=== PATIENT | male | born 1945 | race Caucasian/White ===

== ENCOUNTER 2021-03-17 14:39 | Emergency (ER) | payer OTHER, MEDICARE ==
[2021-03-17] MEDS ORDERED: Amoxicillin/Clavulanate K 875-125 MG Tab PO ONE (15:44)
--- NOTE | 2021-03-17 16:13 | EDM.PDOC ---
ED HPI GENERAL MEDICAL PROBLEM - General Chief Complaint: Lower Extremity Injury/Pain Stated Complaint: R LEG SWOLLEN Time Seen by Provider: 03/17/21 15:10 Source of Information: Reports: Patient, Family History Limitations: Reports: No Limitations - History of Present Illness INITIAL COMMENTS - FREE TEXT/NARRATIVE: 75-year-old male that underwent left leg surgery 3 days ago, Dr. Dominguez performed a hematoma evacuation on the posterior aspect of the lower leg. He has significant bruising from the inguinal canal all the way to the toes but this was present prior to surgery because his injury had occurred 2 weeks ago. For the last 2 days he was bearing some weight and seem to be doing okay but has had a significant setback today, increased pain, unable to bear any weight or even touch his toes on the floor. No fevers or chills. There is also some redness that is developed on the anterior aspect of the acosta. Onset: Gradual Duration: Hour(s): (Symptoms worsened over the past 24 hours) Location: Reports: Lower Extremity, Left Associated Symptoms: Reports: Malaise, Weakness. Denies: Confusion, Chest Pain, Loss of Appetite, Nausea/Vomiting, Shortness of Breath Right Leg Pain Score (Numeric/FACES): 1 - Related Data Allergies Allergy/AdvReac Type Severity Reaction Status Date / Time copper Allergy Rash Verified 03/17/21 15:03 [id number] Reductase Allergy Muscle Verified 03/17/21 15:03 Inhibitor Weakness Sulfa (Sulfonamide Allergy Hives Verified 03/17/21 15:03 Antibiotics) Home Meds: Home Meds Acetic Acid [Glacial Acetic Acid] 2 drop EARBOTH ASDIRECTED PRN 03/17/21 [History] Amoxicillin/Clavulanate K [Augmentin 875-125 MG] 1 tab PO BIDMEALS #20 tablet 03/17/21 [Rx] Aspirin 325 mg PO BEDTIME 03/17/21 [History] Cetirizine HCl [Zyrtec] 10 mg PO DAILY 03/17/21 [History] Econazole/Triamcinolone [Triamazole 1%-0.1% Combo Pack] 1 dose TOP ASDIRECTED PRN 03/17/21 [History] Hypromellose [Natural Balance Tears] 1 drop EYEBOTH DAILY 03/17/21 [History] Labetalol [Normodyne] 200 mg PO BID 03/17/21 [History] Omeprazole 20 mg PO DAILY 03/17/21 [History] Spironolactone [Aldactone] 25 mg PO DAILY 03/17/21 [History] amLODIPine [Norvasc] 5 mg PO DAILY 03/17/21 [History] lisinopriL [Lisinopril] 40 mg PO DAILY 03/17/21 [History] Past Medical History HEENT History: Reports: Allergic Rhinitis, Cataract, Hard of Hearing, Impaired Vision Cardiovascular History: Reports: High Cholesterol, Hypertension Gastrointestinal History: Reports: GERD Oncologic (Cancer) History: Reports: Malignant Melanoma Dermatologic History: Reports: Psoriasis Social & Family History - Tobacco Use Tobacco Use Status *Q: Never Tobacco User - Caffeine Use Caffeine Use: Reports: Coffee - Alcohol Use Number of Drinks Per Day: 2 - Recreational Drug Use Recreational Drug Use: No Review of Systems - Review of Systems Review Of Systems: See Below Constitutional: Denies: Fever Respiratory: Denies: Shortness of Breath Cardiovascular: Denies: Chest Pain GI/Abdominal: Reports: No Symptoms Skin: Reports: Bruising (Significant bruising on the left leg from the groin through the posterior upper leg and circumferential lower leg. A SRAVAN drain is exiting out of the proximal aspect of the posterior gastrocnemius area. There is some clear fluid in the SRAVAN bulb. Significant bruising and swelling is present.) ED EXAM, GENERAL - Physical Exam Exam: See Below Exam Limited By: No Limitations General Appearance: Alert, Mild Distress (Fairly uncomfortable, especially with any exam of the left leg) Eye Exam: Bilateral Eye: Normal Inspection Respiratory/Chest: No Respiratory Distress, Lungs Clear Cardiovascular: Regular Rate, Rhythm Extremities: Other (Left leg is significant bruising, ecchymosis, swelling of the foot with erythema of the anterior aspect of the left acosta.) Neurological: Alert, Oriented Psychiatric: Normal Affect, Normal Mood Course - Vital Signs Last Recorded V/S: Last Vital Signs Temp 97.8 F 03/17/21 15:01 Pulse 78 03/17/21 15:01 Resp 20 03/17/21 15:01 BP 129/59 L 03/17/21 15:01 Pulse Ox 97 03/17/21 15:01 - Orders/Labs/Meds Orders: Active Orders 24 hr Category Date Time Status VL Duplex Lwr Ext Veins Ltd Rt [US] Stat Exams 03/17/21 15:32 Taken Meds: Medications Discontinued Medications Generic Name Dose Route Start Last Admin Trade Name Jacque PRN Reason Stop Dose Admin Amoxicillin/Clavulanate Potassium 1 tab 03/17/21 15:44 03/17/21 15:48 Amoxicillin/Clavulanate K 875-125 Mg Tab PO 03/17/21 15:45 1 tab ONETIME ONE Administration - Re-Assessments/Exams Free Text/Narrative Re-Assessment/Exam: 03/17/21 18:09 CBC and BMP obtained, discussed with Dr. Dominguez. He asked the patient to be admitted to the hospital service, pain control and IV antibiotics and n.p.o. after midnight for surgical manipulation tomorrow morning. 1 g of Ancef was given IV. 03/18/21 11:54 I personally performed or re-performed the physical examination and medical decision making. I have verified all student documentation or findings, including history, physical exam and/or medical decision making, with the following exceptions []. Departure - Departure Time of Disposition: 16:29 Disposition: Home, Self-Care 01 Clinical Impression: Cellulitis of right leg - Discharge Information Prescriptions: Amoxicillin/Clavulanate K [Augmentin 875-125 MG] 1 tab PO BIDMEALS #20 tablet Instructions: Cellulitis, Adult, [id number] Referrals: PCP,None [Primary Care Provider] - Forms: ED Department Discharge Care Plan Goals: Take Augmentin twice daily with food as prescribed for at least 7 days, finished prescription if redness is not completely resolved after 7 days. Elevate your leg for the next day or 2 then increase activity as tolerated. Return anytime if worsening despite treatment, such as increased redness, fever, vomiting the medication or other concerns. Sepsis Event Note (ED) - Evaluation Sepsis Screening Result: No Definite Risk - My Orders Last 24 Hours: My Active Orders 03/17/21 15:32 VL Duplex Lwr Ext Veins Ltd Rt [US] Stat - Assessment/Plan Last 24 Hours: My Active Orders 03/17/21 15:32 VL Duplex Lwr Ext Veins Ltd Rt [US] Stat
--- NOTE | 2021-03-20 09:11 | US ---
VL Duplex Lwr Ext Veins Ltd Rt INDICATION: leg swelling FINDINGS: Ultrasound examination of the lower extremity using Doppler and compressive technique demonstrates that the common femoral, femoral, and popliteal veins are patent, and negative for thrombus. The calf veins were segmentally visualized and are negative where seen. IMPRESSION: Negative for deep venous thrombosis.
== END 2021-03-17 16:29 | disposition home or self-care (01) ==
LOC: JP.ED 14:39
DX: L03.115 Cellulitis of right lower limb (principal); E78.00 Pure hypercholesterolemia, unspecified; I10 Essential (primary) hypertension; K21.9 Gastro-esophageal reflux disease without esophagitis; Z79.82 Long term (current) use of aspirin; Z79.899 Other long term (current) drug therapy; Z88.2 Allergy status to sulfonamides; Z88.8 Allergy status to other drugs, medicaments and biological substances; Z91.048 Other nonmedicinal substance allergy status
CPT/HCPCS: 93971; 99283; A9270

== ENCOUNTER 2024-06-17 10:41 | Emergency (ER) | payer OTHER, MEDICARE ==
[2024-06-17] MEDS: Lidocaine/Epineph/Tetracaine 3 ML Syringe TOP ONE (11:31)
[2024-06-17] MEDS: Bacitracin Oint 1 GM U/D Packet TOP ONE (12:11)
== END 2024-06-17 12:54 | disposition home or self-care (01) ==
LOC: JP.ED 10:41
DX: S61.412A Laceration without foreign body of left hand, initial encounter (principal); I10 Essential (primary) hypertension; K21.9 Gastro-esophageal reflux disease without esophagitis; E66.9 Obesity, unspecified; Z87.891 Personal history of nicotine dependence; Z79.899 Other long term (current) drug therapy; Z79.82 Long term (current) use of aspirin; Z88.2 Allergy status to sulfonamides; Z88.8 Allergy status to other drugs, medicaments and biological substances; Z91.048 Other nonmedicinal substance allergy status; Z68.34 Body mass index [BMI] 34.0-34.9, adult; W26.8XXA Contact with other sharp object(s), not elsewhere classified, initial encounter
CPT/HCPCS: 12002; 99282; A9270

== ENCOUNTER 2025-05-21 17:34 | Emergency (ER) | payer MEDICARE, OTHER ==
[2025-05-21] MEDS: Codeine/guaiFENesin 10-100 MG/5 ML Syrup 5 ML Cup PO ONE (18:09)
[2025-05-21 18:19] LABS: BASOPHILS PERCENT AUTO 0.3 % (0.1-1.3); EOSINOPHILS ABSOLUTE AUTO 0.07 K/uL (0.00-0.40); EOSINOPHILS PERCENT AUTO 1.9 % (0.0-5.4); IMMATURE GRAN PERCENT AUTO 0.5 % (0.0-0.7); LYMPHOCYTES ABSOLUTE AUTO 0.57 K/uL (0.8-3.3); LYMPHOCYTES PERCENT AUTO 15.2 % (11.4-47.7); MONOCYTES ABSOLUTE AUTO 0.51 K/uL (0.20-0.90); MONOCYTES PERCENT AUTO 13.6 % (3.3-12.6); NEUTROPHILS ABSOLUTE AUTO 2.56 K/uL (1.0-7.6); NEUTROPHILS PERCENT AUTO 68.5 % (40.0-78.1); PLATELET COUNT,PLT 125 K/uL (130-375); RED BLOOD CELL COUNT 4.56 M/uL (4.14-5.76); WHITE BLOOD CELL COUNT,WBC 3.7 K/uL (3.2-11.0)
[2025-05-21 18:20] LABS: BASOPHILS ABSOLUTE AUTO 0.01 K/uL (0.00-0.10); IMMATURE GRAN ABSOLUTE AUTO 0.02 K/uL (0.00-0.23)
[2025-05-21 19:08] LABS: A/G RATIO 0.8 (1.2-2.2); ALANINE AMINOTRANSFERASE,ALT 24 U/L (12-78); ASPARTATE AMNIOTRANSFERASE,AST 29 U/L (15-37); BILIRUBIN TOTAL 0.5 mg/dL (0.2-1.0); BLOOD UREA NITROGEN,BUN 24 mg/dL (7-18); CARBON DIOXIDE,CO2 27 mmol/L (21-32); CHLORIDE,CL 98 mmol/L (100-108); CREATININE 1.5 mg/dL (0.8-1.3); EST CRCL DRUG DOSING (CG) 44.55 mL/min; ESTIMATED GFR 47 mL/min (>60); GLUCOSE RANDOM 95 mg/dL (74-106); POTASSIUM,K 4.6 mmol/L (3.6-5.2); PRO B-TYPE NATRIUR PEPT,BNPPRO 526 pg/mL (5-450); PROTEIN TOTAL,TP 6.0 g/dL (6.4-8.2); SODIUM,NA 134 mmol/L (140-148); TROPONIN I HIGH SENSITIVITY 13.4 pg/mL (<=60.3)
== END 2025-05-21 20:26 | disposition home or self-care (01) ==
LOC: JP.ED 17:34
DX: J40 Bronchitis, not specified as acute or chronic (principal); I10 Essential (primary) hypertension; E78.00 Pure hypercholesterolemia, unspecified; Z88.8 Allergy status to other drugs, medicaments and biological substances; Z79.82 Long term (current) use of aspirin; Z87.891 Personal history of nicotine dependence
CPT/HCPCS: 36415; 80053; 83605; 83880; 84484; 85025; 94640; 99285; A9270; J7620; 99283